=== PATIENT | female | born 1990 | race Caucasian/White ===

== ENCOUNTER → 2021-01-06 | Outpatient (CLI) | payer OTHER ==
--- NOTE | 2021-01-06 16:09 | RAD ---
EXAM: Abdomen sonogram. HISTORY: Elevated liver function laboratory values. TECHNIQUE: Sonographic imaging of the abdomen was performed. COMPARISON: None. FINDINGS: The liver is enlarged. There is hepatic steatosis. No focal hepatic lesion is seen. The gal lbladder is unremarkable. The common bile duct is normal in caliber. The right kidney is unremarkable . The pancreas and inferior vena cava are predominantly obscured due to bowel gas. IMPRESSION: 1. Hepatomegaly and hepatic steatosis. 2. Predominantly obscured midline structures due to bowel gas. Electronically signed by: Pamella Villarreal MD (01/06/2021 4:07 PM) [id number]
== END ==
LOC: US 09:31
PROVIDERS: ATTEND Internal Medicine Gastroenterology
DX: K76.0 Fatty (change of) liver, not elsewhere classified (principal); R16.0 Hepatomegaly, not elsewhere classified
CPT/HCPCS: 76705